=== PATIENT | male | born 1965 | race Caucasian/White ===

== ENCOUNTER → 2017-05-29 | Outpatient (CLI) | payer BC ==
--- NOTE | 2017-05-29 21:30 | MR ---
EXAMINATION TYPE: MR lumbar spine wo/w con DATE OF EXAM: 05/29/2017 COMPARISON: NONE HISTORY: Low back pain prev. surgery, Gadavist 7.5 CONTRAST: 7.5 mL intravenous Gadavist. TECHNIQUE: Multiplanar, multisequence images of the lumbar spine were acquired. FINDINGS: Cord terminates at the L1-2 level. L5-S1: Minimal disc bulge is present with anterior thecal sac contact. No AP spinal canal stenosis is present. Facet hypertrophy with posterior lateral and lateral thecal sac compression is evident. Rig ht neural foramen is patent. There is moderate left foraminal narrowing. L4-L5: There is loss of disc height to this level. No significant residual disc bulge is evident. No spinal canal stenosis present. Facet hypertrophy is present. Foramen are patent. L3-L4: No significant disc bulge or disc herniation. No spinal canal stenosis. Facet hypertrophy is present with ligamentum flavum laxity with mild posterior lateral thecal sac compression. . L2-L3: No significant disc bulge or disc herniation. No spinal canal stenosis. No foraminal stenosi s. . L1-L2: No significant disc bulge or disc herniation. No spinal canal stenosis. No foraminal stenosi s. . T12-L1: No significant disc bulge or disc herniation. No spinal canal stenosis. No foraminal stenos is. . Laminectomy changes are present L4-L5. No suspicious enhancement is evident. IMPRESSION: 1. Postsurgical changes to the lower lumbar spine. 2. Mild facet hypertrophy is present lower lumbar spine L3-4 through L5-S1. 3. Moderate left foraminal stenosis L5-S1. 4. Degenerative disc disease and loss of disc height L4-5. 5. Postlaminectomy changes. No suspicious granulation tissue surrounding nerve roots of the thecal sa c is evident.
== END | disposition home or self-care (01) ==
LOC: RADMRIMAIN 20:06
PROVIDERS: ATTEND Family Medicine
DX: M99.73 Connective tissue and disc stenosis of intervertebral foramina of lumbar region (principal); M51.36 Other intervertebral disc degeneration, lumbar region; M47.816 Spondylosis without myelopathy or radiculopathy, lumbar region; M46.96 Unspecified inflammatory spondylopathy, lumbar region
CPT/HCPCS: 72158; A9581